=== PATIENT | female | born 1995 | race African-American/Black ===

== ENCOUNTER 2019-11-25 11:13 | Outpatient (CLI) | payer SELFPAY | END 2019-11-25 21:47 | disposition home or self-care (01) | LOC: D.LDO 11:13 | PROVIDERS: ATTEND Student in an Organized Health Care Education/Training Program | DX: O26.899 Other specified pregnancy related conditions, unspecified trimester (principal); Z3A.00 Weeks of gestation of pregnancy not specified; V89.2XXA Person injured in unspecified motor-vehicle accident, traffic, initial encounter; Y93.9 Activity, unspecified; Y92.9 Unspecified place or not applicable ==

== ENCOUNTER 2019-12-16 09:19 | Outpatient (CLI) | payer SELFPAY | END 2019-12-16 14:08 | disposition left against medical advice (07) | LOC: D.LDO 09:19 | PROVIDERS: ATTEND Obstetrics & Gynecology | DX: O36.5990 Maternal care for other known or suspected poor fetal growth, unspecified trimester, not applicable or unspecified (principal) ==

== ENCOUNTER 2019-12-23 10:05 | Outpatient (CLI) | payer SELFPAY | END 2019-12-23 13:31 | disposition home or self-care (01) | LOC: D.LDO 10:05 | PROVIDERS: ATTEND Obstetrics & Gynecology | DX: O36.5930 Maternal care for other known or suspected poor fetal growth, third trimester, not applicable or unspecified (principal); Z3A.37 37 weeks gestation of pregnancy ==

== ENCOUNTER 2019-12-30 05:11 | Inpatient (IN) | payer MEDICAID ==
[2019-12-30] VITALS (10 sets, daily range): BP systolic 113–143; BP diastolic 63–81; Ht 152.4 cm; Wt 64.1 kg
[~2019-12-30] VITALS: Ht 152.4 cm; Wt 64.1 kg
[2019-12-30 07:19] LABS: HEMATOCRIT 28.2 % (36.0-48.0); HEMOGLOBIN 8.7 g/dL (12-16); MCH 22.9 pg (26.0-34.0); MCHC 30.9 g/dL (31.0-37.0); MCV 74.2 fL (80.0-100.0); MEAN PLATELET VOLUME 11.7 fL (7.4-10.4); RBC 3.8 10x6/uL (4.00-5.40); RDW 15.1 % (11.5-14.5); WBC 14.5 10x3/uL (4.8-10.8)
[2019-12-30] MEDS ORDERED: PRENAVITE1 TAB PO (07:38)
--- NOTE | 2019-12-30 10:15 | NUR ---
BABY 0948 PLACENTA 0948
--- NOTE | 2019-12-30 11:15 | NUR ---
RECEIVED PT FROM OR BY LD BIRTHING BED, TO ROOM 1273, PT THEN TRANSFERRED FROM LD BED TO REGULAR BED, WITH ASSISSTANCE FROM RR RN, AND Janett CHAVEZ RN. SRUP X2, CALL LIGHT AND PHONE WITHIN REACH. FUNDUS FIRM, U/U, MODERATE RUBRA LOCHIA, WITH 3-4 QUARTER SIZED CLOTS EXPELLED. PERIAREA CLEANSED WITH WARM WET WASHCLOTHS, PERIPADS CHANGED. LARGE WHITE DRESSING NOTED TO LOW TRANSVERSE INCISIONAL AREA, C/D/I. ICE PACK PLACED OVER GOWN TO INCISION. PT HAS SCD'S ON, BUT CONNECTED TO MACHINE. GARCIA CATH IN PLACE, DRAINING YELLOW URINE, 500 CC'S NOTED IN GARCIA BAG. PT DENIES SOB, DIZZINESS, OR DIFFICULTY BREATHING. ICE WATER SERVED. SRUP X2, CALL LIGHT AND PHONE WITHIN REACH.
--- NOTE | 2019-12-30 11:56 | NUR ---
METAL HANDLER DILAUDID EXPLAINED TO PT, PT DENIES QUESTIONS REGARDING MEDICATION/SIDE EFFECTS, AND USE OF METAL HANDLER BUTTON, WITHIN REACH. PT DOZING COMFORTABLY NOW. SRUP X2, CALL LIGHT AND PHONE WITHIN REACH. SIG OTHER AT BEDSIDE. PT ON RIGHT TILT.
--- NOTE | 2019-12-30 12:00 | NUR ---
FUNDUS FIRM, U/U, SMALL RUBRA LOCHIA, NO CLOTS EXPRESSED. PT REQUESTS AN EXTRA BLANKET, PROVIDED.
--- NOTE | 2019-12-30 12:12 | NUR ---
DIETARY SERVES CLEAR LIQUID DIET. PT DENIES ALL NEEDS AT THIS TIME. SRUP X2, CALL LIGHT AND PHONE WITHIN REACH.
[2019-12-30 12:16] LABS: UDS - AMPHET NEGATIVE QUAL (NEGATIVE); UDS - BARB NEGATIVE QUAL (NEGATIVE); UDS - BENZO NEGATIVE QUAL (NEGATIVE); UDS - COCAINE NEGATIVE QUAL (NEGATIVE); UDS - OPIATE NEGATIVE QUAL (NEGATIVE); UDS - PCP NEGATIVE QUAL (NEGATIVE); UDS - THC NEGATIVE QUAL (NEGATIVE)
--- NOTE | 2019-12-30 14:30 | NUR ---
TO PT'S ROOM, PT IS DOZING OFF, PT AWAKENED, RESP EVEN AND UL AT 16/MIN. FUNDUS FIRM, U/U, SMALL RUBRA LOCHIA, NO CLOTS. PERICARE DONE WITH WARM WET WASHCLOTHS, PERITOWEL/CHUX CHANGED. NEW PERIPADS APPLIED. NEW ICE PACK PLACED OVER GOWN TO INCISION, DRESSING REMAINS C/D/I. PT STATES SHE WAS ABLE TO TOLERATE HER CLEAR LIQUID LUNCH, DENIES N/V OR SOB. LARGE MUG OF ICE WATER SERVED TO PT. PT REQUESTS A CUP OF ICE WELL, SERVED. SRUP X2, CALL LIGHT AND PHONE WITHIN REACH. INCENTIVE SPIROMETER DEMONSTRATED, AND PT IS USING WELL X 3. PT REPOSITIONED TO LEFT TILT FROM HER RIGHT TILT. PILLOW PLACED UNDER BACK FOR SUPPORT AND COMFORT.
[2019-12-30 16:34] LABS: BASOPHILS 0.4 % (0-2); EOSINOPHILS 1.3 % (0-7); HEMATOCRIT 31.8 % (36.0-48.0); IMMATURE GRANULOCYTES 0.7 % (0-5); LYMPHOCYTES 14.7 % (15-50); MCH 23.8 pg (26.0-34.0); MCHC 31.4 g/dL (31.0-37.0); MCV 75.5 fL (80.0-100.0); MEAN PLATELET VOLUME 11.7 fL (7.4-10.4); MONOCYTES 5.3 % (2-11); NEUTROPHILS 77.6 % (40-80); PLATELET COUNT 163 10x3/uL (130-400); RBC 4.21 10x6/uL (4.00-5.40); RDW 15.2 % (11.5-14.5); WBC 17.4 10x3/uL (4.8-10.8)
--- NOTE | 2019-12-30 18:00 | NUR ---
TO PT'S ROOM, PT IS SITTING UP IN THE BED, ATTEMPTING TO BREASTFEED WITH ASSISTANCE FROM PINKY AMOS RN. PT HAS REQUESTED TORADOL, TORADOL GIVEN SIVP, SEE EMAR FOR EXACT TIMES. Reddy AMOS RN TAKES INFANT TO BURP BABY. FUNDUS FIRM, U/1, SMALL RUBRA LOCHIA, NO CLOTS EXPRESSED. PERINEAL CARE WITH WARM WET WASHCLOTHS, PERIPADS CHANGED. ABDOMEN CONTINUES TO PALPATE SOFT. DRESSING REMAINS C/D/I. NEW ICE PACK PLACED OVER GOWN TO INCISION. GARCIA CATH EMPTIED WITH TOTAL OF 1200ML'S YELLOW URINE OUT. PT DENIES ALL OTHER NEEDS, SRUP X2, CALL LIGHT AND PHONE WITHIN REACH. SIG OTHER RESTING ON SOFA.
--- NOTE | 2019-12-30 20:00 | NUR ---
SITTING IN BED W HOB@ 45 DEGREE, PATIENT COMFORTABLE WITH USE OF HIGH SCHOOL SCIENCE TEACHER, PRIMARY IV INFUSING 2 125/HR. PATIENT, NO REDNESS NOTED, MOVING WELL, DENIES ANY NAUSEA, HUNGRY, TOLERATING FLUIDS WELL, CHICKEN BROTH, WITH A FEW CRACKER S OFFERED, FUNDUS FIRM/ML @ U, LOCHIA SMALL RUBRA. DENIES NEEDS
--- NOTE | 2019-12-30 20:50 | NUR ---
TOLERATED BROTH CRACKERS WELL, DENIES NAUSEA.
--- NOTE | 2019-12-30 20:51 | NUR ---
NEW BAG OF NS WITH PITOCIN UP TO THE RT HAND. PT VERBALIZES NO OTHER NEEDS AT THIS TIME. Giovanni MARTINEZ RN
--- NOTE | 2019-12-30 21:30 | NUR ---
DEMONSTRATED USE OF BULB SYRINGE TO PARENTS, INFORMED SNEEZING IS NORMAL AND BABY IS CLEARING AIR PASSAGE, VOICES UNDERSTANDING.
--- NOTE | 2019-12-30 22:57 | NUR ---
PATIENT SITTING UP IN BED HOLDING BABY, GARCIA EMPTIED OF 1600ML CLEAR YELLOW URINE. IV PUMPS CLEARED PRIMARY 605 AND DIRECTOR OF HOME ECONOMICS 3ML FUNDUS FIRM/ML/AT U LOCHIA SMALL RUBRA,
--- NOTE | 2019-12-30 23:55 | NUR ---
Pericare pads changed, tolerating activity and moving well, denies needs
--- NOTE | 2019-12-31 00:24 | MORECARE ---
CASE MANAGEMENT DISCHARGE SUMMARY PATIENT: CARLOS RODGERS UNIT: [id number] ADM DATE: 12/30/19 AGE: 24 : [birth year] SEX: F ROOM/BED: D.1273 AUTHOR: MCKENZIE AVENDAÑO PHYSICIAN: REFERRING PHYSICIAN: JANE MURGUIA MD DATE OF SERVICE: 12/31/19 Discharge Plan Patient Name: CARLOS RODGERS [facility] [facility] 1995 Planned Disposition: Anticipated Discharge Date: Discharge Date: Expected LOS: Initial Reviewer: [email or web address] Initial Review Date: 12/30/2019 Generated: 12/31/19 1:24 am Patient Name: CARLOS RODGERS Page [id number] at 0024 All edits/amendments must be made on the electronic document DICTATION DATE: 12/31/1923 ROTATING FIELD ASSEMBLER: LUZMARIA 12/31/19 0024 RPT#: [id number] DC DATE: STATUS: ADM IN [facility] [address] [place] [address] END OF REPORT
--- NOTE | 2019-12-31 01:00 | NUR ---
watching TV, FOB at bedside, Ice refilled for incision site, LTV dressing dry intact, pressure dressing is releasing on left side, no new drainage noted
--- NOTE | 2019-12-31 02:05 | NUR ---
Toradol given for breakthrough pain, 04/03 instructed to continue to use GAS STATION SERVICE ATTENDANT Sabine care, pads and under pad changed
--- NOTE | 2019-12-31 03:05 | NUR ---
resting with eyes closed, SR up and call light in reach
--- NOTE | 2019-12-31 04:00 | NUR ---
pericare done, pads changed, FF/ML/1below U lochia scant rubra. LTV dressing loose on left, perforated tape tearing, dressing dry, goldstein draining well and emptied of clear yellow urine 2300ml. SCD's on
[2019-12-31 04:08] VITALS: BP 15/67
--- NOTE | 2019-12-31 05:00 | NUR ---
Resting well, Ice water refilled, tolerating fluids well with no nausea.
[2019-12-31 06:05] LABS: BASOPHILS 0.3 % (0-2); EOSINOPHILS 1.4 % (0-7); HEMATOCRIT 33.4 % (36.0-48.0); HEMOGLOBIN 10.4 g/dL (12-16); IMMATURE GRANULOCYTES 0.9 % (0-5); LYMPHOCYTES 14.3 % (15-50); MCH 23.3 pg (26.0-34.0); MCHC 31.1 g/dL (31.0-37.0); MCV 74.7 fL (80.0-100.0); MONOCYTES 5.4 % (2-11); NEUTROPHILS 77.7 % (40-80); RBC 4.47 10x6/uL (4.00-5.40); RDW 15.2 % (11.5-14.5); WBC 13.9 10x3/uL (4.8-10.8)
[2019-12-31 06:08] LABS: RAPID PLASMA REAGIN Non Reactive (Non Reactive)
[2019-12-31 06:08] LABS: PLATELET COUNT 197 10x3/uL (130-400)
--- NOTE | 2019-12-31 06:15 | NUR ---
resting well, baby in crib at bedside, denies needs, FOB also at bedside and very attentive and helpful with baby
--- NOTE | 2019-12-31 07:18 | NUR ---
AM ASSESSMENT COMPLETED PER FLOWSHEET. FUNDUS FIRM AT U/1 WITH LIGHT BLEEDING NOTED. BIKINI INCISION CLEAN AND DRY AND COVERED WITH LARGE WHITE BANDAGE. IV TO RIGHT HAND INFUSING PER ORDERS. SALINE LOCK TO LEFT HAND FLUSHED EASILY WITH 5ML NS. GARCIA CATH TO BEDSIDE DRAIN, 150ML CLEAR URINE NOTED TO COLLECTION CANISTER. SCD BILAT AND ON PUMP. PT RATES PAIN AT 3/10, SHE IS ENCOURAGED TO USE HER NETWORK PROJECT MANAGER. IN CRIB AT BEDSIDE, SIDE RAILS UP X 2 WITH CALL LIGHT IN REACH.
--- NOTE | 2019-12-31 11:30 | NUR ---
GARCIA CATH REMOVED INTACT WITH OUTPUT OF 1900ML CLEAR URINE. DILAUDID MANAGER IMAGE D/C AND IV SALINE LOCKED. PT IS ABLE TO MOVE SELF TO SITTING UP ON SIDE OF BED WIHTOUT COMPLAINTS. AMB TO BATHROOM AND VOIDS 300ML. GOWN CHANGED. MESHBRIEFS AND RAMESH PAD ON. PT BACK TO BED PER HERSELF AND ABLE TO POSITION FOR COMFORT.
--- NOTE | 2019-12-31 12:07 | NUR ---
NORCO 10/325MG AND MOTRIN 600MG GIVEN FOR PAIN THAT SHE RATES AT 8/10
--- NOTE | 2019-12-31 12:45 | NUR ---
PAIN REASSESSMENT, PT RATES AT 2-3/10 DENIES NEEDS AT THIS TIME.
--- NOTE | 2019-12-31 14:18 | NUR ---
PT DENIES NEEDS, SHE STATES SHE HAS GOTTEN UP TO VOID AGAIN, 300ML NOTED TO COLLECTION HAT IN BATHROOM. BONDING WITH INFANT. SIG OTHER AT BEDSIDE. CALL LIGHT IN REACH.
--- NOTE | 2019-12-31 16:08 | NUR ---
large cup of ice per pt request. infant in crib at bedside. call light in reach. pt denies any other needs.
--- NOTE | 2019-12-31 17:15 | NUR ---
Pt rates pain at 11/04, she has been to bathroom without any assistance needed voided 300ml. Denies needs at this time.
--- NOTE | 2019-12-31 19:00 | NUR ---
REPORT TO 7P-7A
--- NOTE | 2019-12-31 19:30 | NUR ---
LTV ABDOMINAL INCISION WELL APPROXIMATED WITH JANICE INTACT, FUNDUS FIRM, MIDLINE, -1 LOCHIA SMALL TO SCANT RUBRA, VOIDING WELL WITHOUT COMPLICATIONS
[2019-12-31 19:35] VITALS: BP 124/78
--- NOTE | 2019-12-31 20:00 | NUR ---
PATIENT SITTING UP IN BED BREAST FEEDING, NORCO AND MOTRIN HAS BEEN GIVEN FOR C/O PAIN RATED 10/10, ENCOURAGED PATIENT NOT TO LET PAIN GET OUT OF CONTROL. DISCUSSED LIMITED ACTIVITIES FOR THE NEXT TWO WEEKS ON LIFTING, DRIVING, NO EXERCISE PROGRAMS, MALKING ENCOURAGED IN ONE WEEK WITH STROLER BUT NO LIFTING STROLER VOICES UNDERSTANDING
--- NOTE | 2019-12-31 21:46 | NUR ---
UP AMBULATING IN ROOM, BEDTIME SNACK OF KACIE CRACKERS AND SPRITE AT REQUEST OF PATIENT, CALL LIGHT IN REACH AND SR UP X2 FOB AT BEDSIDE
--- NOTE | 2019-12-31 22:25 | NUR ---
COMFORTABLE DENIES NEEDS AT THIS TIME. FOB AT BEDSIDE, CALL LIGHT IN REACH AND SR UP X2
--- NOTE | 2019-12-31 23:20 | NUR ---
NORCO GIVEN FOR INCISIONAL DISCOMFORT BROUGHT ON BY ACTIVITY. BABY NURSING WELL, CALL LIGHT IN REACH AND SR UP X2
[2019-12-31 23:21] VITALS: BP 112/71
--- NOTE | 2020-01-01 00:20 | NUR ---
watching TV FOB AT BEDSIDE
--- NOTE | 2020-01-01 01:34 | NUR ---
water cups refilled, trinity crackers at request, Motrin given at request
--- NOTE | 2020-01-01 02:30 | NUR ---
AWAKE FEEDING BABY, ICE AND SPRITE SERVED TO PATIENT, DENIES NEEDS, SR UP X2 AND CALL LIGHT IN REACH
--- NOTE | 2020-01-01 03:49 | NUR ---
SANDWICH TRAY SERVED AT REQUEST OF PATIENT
--- NOTE | 2020-01-01 04:30 | NUR ---
AWAKE WATCHING PROGRAM OM PHONE, DENIES NEEDS, ENCOURAGED REST FOR INCREASED MILK SUPPLY
--- NOTE | 2020-01-01 05:34 | NUR ---
EXTRA PILLOWS FOR SUPPORT OF ABDOMEN, PATIENT TURNED TO RIGHT SIDE AND LIGHTS OUT, CALL LIGHT IN REACH AND FOB AT BEDSIDE, BABY IN CRIB AT BEDISDE
--- NOTE | 2020-01-01 07:15 | NUR ---
DR MURGUIA TO ROOM FOR ROUNDING, DISCUSSING D/C PLANNING AND TO SET UP STAPLE REMOVAL FOR MONDAY.
[2020-01-01 07:40] VITALS: BP 118/66
--- NOTE | 2020-01-01 07:41 | NUR ---
THIS RN RETURNS TO ROOM FOR SHIFT ASSESSMENT AND PAIN SERVICE STATION MANAGER. PT RATING PAIN 6/[address] MURGUIA'S ROUNDING. PT ADMIN PRN NORCO 10 ORDERED, SEE EMAR FOR DOC. SHIFT ASSESSMENT COMPLETE, VSS, SEE FLOWSHEET FOR DOC. PT DENIES DIZZINESS WITH AMBULATION, REPORTS INCREASED PAIN WITH ACTIVITY. LEFT HAND PIV D/C'D NO LONGER INDICATED. PRESSURE HELD AND BANDAID APPLIED. FF, ML, U/2. LOW TRANSVERSE ABD INCISION IS C/D WITH JANICE INTACT. SMALL RUBRA LOCHIA NOTED TO PERIPAD, NO CLOTS. PT REPORTS MINIMAL LOCHIA THROUGHOUT NIGHT, NO CLOTS. INSTRUCTED ON S/S TO REPORT WELL EMPTYING BLADDER REGULARLY. UNDERSTANDING VERBALIZED. SCD'S OFF PER PT FOR OUT OF BED ACTIVITY. NEG DANIAL'S SIGN TO LE BILAT. NO EDEMA NOTED. PT PROVIDED WITH PADS AND PANTIES PER REQUEST. FRESH ICE WATER AND JUICE ALSO GIVEN, BREAKFAST TRAY DELIVERED AT THIS TIME. PT SETS UP TRAY TO EAT BREAKFAST, DENIES FURTHER NEEDS. STATES SHE WILL PROBABLY WAIT TO SHOWER AT HOME. INSTRUCTED TO CALL FOR ANY NEEDS. SRUx2, CL IN REACH. INFANT IN BEDSIDE ABDOULAYETTE, FOB ON BEDSIDE COUCH. WILL CONT TO MONITOR.
--- NOTE | 2020-01-01 08:15 | NUR ---
BREAKFAST TRAY AND TRASH REMOVED FROM ROOM. PT DENIES NEEDS.
--- NOTE | 2020-01-01 09:41 | NUR ---
THIS RN TO ROOM FOR PT CHECK. PT RESTING IN BED, SUPINE WITH RIGHT TILT, LIGHTS IN ROOM DIMMED. PT STATES SHE JUST GOT UP TO VOID AND PAIN WAS MUCH BETTER WITH ACTIVITY AFTER PAIN MED. DENIES NEEDS AT THIS TIME. SRUx2, WILL CONT TO MONITOR.
--- NOTE | 2020-01-01 10:45 | NUR ---
THIS RN TO ROOM FOR PT CHECK. PT QUESTIONING WHEN SHE WILL BE ABLE TO GO HOME. INFORMED AWAITING DECISION ON INFANT DISCHARGE HER DOCTOR GAVE VERBAL ORDER FOR D/C TO HOME WITH . UNDERSTANDING VERBALIZED. WILL CONT TO MONITOR.
--- NOTE | 2020-01-01 12:35 | NUR ---
PT GIVEN D/C INSTRUCTIONS WELL PRESCRIPTIONS FOR PAIN CONTROL POST D/C TO HOME. PT VERBALIZES UNDERSTANDING, DENIES QUESTIONS. PT SIGNS CHART COPIES. PT INSTRUCTED WILL CALL FOR W/C OFF UNIT TO PRIVATE VEHICLE. PT REFUSES W/C. PT OFF UNIT AMBULATORY WITH SIG OTHER TO DRIVE HER HOME, INFANT BUCKLED IN CARSEAT AND CARRIED BY SIG OTHER.
--- NOTE | 2020-01-01 18:47 | MORECARE ---
CASE MANAGEMENT DISCHARGE SUMMARY PATIENT: CARLOS RODGERS UNIT: [id number] ADM DATE: 12/30/19 AGE: 24 : [birth year] SEX: F ROOM/BED: D.1277 AUTHOR: MCKENZIE AVENDAÑO PHYSICIAN: REFERRING PHYSICIAN: JANE MURGUIA MD DATE OF SERVICE: 01/01/20 Discharge Plan Patient Name: CARLOS RODGERS [facility] [facility] 1995 Planned Disposition: Anticipated Discharge Date: Discharge Date: 01/01/2020 Expected LOS: Initial Reviewer: [email or web address] Initial Review Date: 12/30/2019 Generated: 01/01/20 7:46 pm Last DP export: 12/30/19 11:24 pm Patient Name: CARLOS RODGERS Page [id number] at 1847 All edits/amendments must be made on the electronic document DICTATION DATE: 01/01/201845 SPECIAL COLLECTIONS LIBRARIAN: LUZMARIA 01/01/201845 RPT#: [id number] DC DATE:01/01/20 STATUS: DIS IN [facility] [address] [place] [address] END OF REPORT
--- NOTE | 2020-01-02 19:29 | MORECARE ---
CASE MANAGEMENT DISCHARGE SUMMARY PATIENT: FAM SHABAZZ UNIT: [id number] ADM DATE: 12/30/19 AGE: 24 : [birth year] SEX: F ROOM/BED: D.1277 AUTHOR: JAROCHO,DOC PHYSICIAN: REFERRING PHYSICIAN: JANE MURGUIA MD DATE OF SERVICE: 01/02/20 Discharge Plan Patient Name: FAM SHABAZZ Facility: [facility]:[place] : 1995 Planned Disposition: Anticipated Discharge Date: Discharge Date: 01/01/2020 Expected LOS: Initial Reviewer: [email or web address] Initial Review Date: 12/30/2019 Generated: 01/02/20 8:28 pm Comments DCP- Discharge Planning Updated by [email or web address]: Lavonne Arana on 01/02/20 6:[address] LATE ENTRY 12/31/19 DC PLAN: MOB states she plans taking infant home. Address: [address] [place] [id number]. DC NEEDS: Denies any needs TRANSPORTATION: private vehicle WIC: No appointment MEDICAID: MOB states she has filled out paperwork CAR SEAT: Yes FEEDING PLAN: Plans Breast feed. BABY NAME: Duane Franco FOB: Anthony Franco MOB: Fam Shabazz FISH WORM GROWER: Jean CARE: MOB had throughout SUPPLIES: MOB states she has everything she needs for Baby WATER SOURCE: [facility] HEAT SOURCE: Electric MOB states they have smoke alarms in the home AIR CONDITIONING: yes CM met with MOB after obtaining verbal consent regarding dc planning/needs. MOB to return to her home with . States home environment is safe. She states in addition to herself, three other people live in the home. MOB states she will have transportation to follow up appointments. MOB states this is her second child. MOB states that she does have custody of her other child. She has a daughter that is 6 yrs old. MOB denies any pets, smoking, drug or etoh use in the home. CM spoke to MOB regarding positive drug screen THC sometime during her . MOB states that she smokes marijuana occasionally for recreational use. Denies any discharge needs at this time. CM will continue to follow and assist as needed with dc planning/needs. Last DP export: 01/01/20 5:47 pm Patient Name: FAM SHABAZZ Page [id number] at 192 All edits/amendments must be made on the electronic document DICTATION DATE: 01/02/201927 BANDER OPERATOR: LUZMARIA 01/02/201927 RPT#: [id number] DC DATE:01/01/20 STATUS: DIS IN [facility] [address] [place] [address] END OF REPORT
== END 2020-01-01 17:15 | disposition home or self-care (01) | DRG 788 ==
LOC: D.LD 05:11
PROVIDERS: ADMIT Obstetrics & Gynecology; ATTEND Obstetrics & Gynecology
PROC: 10D00Z1 Extraction of Products of Conception, Low, Open Approach (ICD-10-PCS; principal; 2019-12-30 09:00)
DX: O99.02 Anemia complicating childbirth (principal); Z37.0 Single live birth; Z3A.38 38 weeks gestation of pregnancy; D56.9 Thalassemia, unspecified; Z91.19 Patient's noncompliance with other medical treatment and regimen; Z64.1 Problems related to multiparity; D57.40 Sickle-cell thalassemia without crisis